=== PATIENT | female | born 1980 | race Hispanic/Latino ===

== ENCOUNTER 2023-05-27 08:53 | Outpatient (CLI) | payer OTHER | END 2023-05-27 08:54 | disposition home or self-care (01) | LOC: BICMAMMO 08:53 → EDBD 09:15 | PROVIDERS: ATTEND Nurse Practitioner Family | DX: Z12.31 Encounter for screening mammogram for malignant neoplasm of breast (principal) | CPT/HCPCS: 77063; 77067 ==